=== PATIENT | male | born 1985 | race Two or more races ===

== ENCOUNTER 2023-05-14 09:16 | Observation (INO) ==
[2023-05-14] MEDS ORDERED: MoRPHine SULFATE 4 MG/ML 1 ML CARP\\VIAL IV STA (09:51)
[2023-05-14] MEDS ORDERED: SODIUM CHLORIDE 0.9% 1,000 ML IV STA (09:51)
[2023-05-14] MEDS ORDERED: ONDANSETRON INJ 2 MG/ML 2 ML VIAL IV STA (09:51)
--- NOTE | 2023-05-14 09:56 | Emergency Department Note ---
Impression & Plan Acute appendicitis ED Provider Note Provider: Santy Fernandez MD DATE OF SERVICE: 05/14/2023 CHIEF COMPLAINT: Severe abdominal pain HISTORY OF PRESENT ILLNESS: Patient is a 38-year-old gentleman denies significant past medical history history of surgeries presenting here [facility]. Reports onset of pain yesterday evening around 6 PM in the right lower abdomen. Denies any significant vomiting reports again nausea and one small episode of diarrhea. Denies any trauma. Denies history of similar. Pain diffusely in the abdomen more on the right side. Sent for [facility] further evaluation. Had a urine test sent there that was unremarkable. Has not used anything for pain at home. Denies allergies to his knowledge. Denies urinary or symptoms. 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 NECK: Trachea midline. ENT: Mucous membranes pink and moist. LUNGS: Airway patent. No retractions or significant work of breathing/tachypnea HEART: Regular rate and rhythm. No chest wall tenderness ABDOMEN: Soft but with diffuse tenderness predominantly in the right lower quadrant slightly in the right upper quadrant. Guarding. SKIN: Acyanotic, warm, dry, without rashes EXTREMITIES: Without swelling, tenderness or deformity NEUROLOGICAL: No focal deficits. No aphasia. No facial droop or slurred speech. Ambulatory. EK bpm normal sinus rhythm with an incomplete right bundle branch block. No acute ST segment elevation or depression with a QTc of 436. Patient's laboratory studies and imaging reviewed. Differential includes Appendicitis, testicular torsion, infections, diverticulitis, UTI, obstruction, mesenteric ischemia, aortic pathology, inflammatory bowel disease, renal colic, PUD, pancreatitis, biliary pathology, hernia, volvulus, constipation, as well as other pathologies. IMPRESSION/MEDICAL DECISION MAKING: Patient with significant abdominal pain predominantly right lower but little bit to the right side of the abdomen. Not significantly tender in the left but guarding. Appears uncomfortable. No significant medical or surgical history reported. Given some IV fluids, Zofran, morphine for pain. Lab work was completed. Question if he has possible appendicitis given the significance of his tenderness or other surgical pathology. Does not seem to be distended and lower suspicion for obstruction. We will complete a CT scan for further differentiation. Denies significant respiratory symptoms or chest discomfort and lower suspicion for pulmonary or cardiac etiology. Cyavb-ey-ouhh labs obtained and sent for CT scan given his tenderness and history. Have concern for appendicitis. Blood work here without significant anemia. Leukocytosis of 18 as noted. No evidence of significant electrolyte abnormality or renal dysfunction. No laboratory evidence of hepatitis or pancr eatitis. CT scan per my review and report concerning for acute appendicitis. Will cover with Zosyn. General surgery consulted. Discussed with the patient. N.p.o. since 7 PM last evening other than some sips of water this morning. DIAGNOSIS: Appendicitis DISPOSITION: Evaluation by general surgery with plan for OR Past Med/Surg History Social History Smoking Status: Never smoker Feels Safe at Home: Yes Allergies Allergies Allergy/AdvReac Type Severity Reaction Status Date / Time No Known Allergies Allergy Unverified 05/14/23 12:30 Home Meds Home Medications Medication Instructions Recorded Confirmed [id number] 0.4 mg-calcium 162 1 tab PO DAILY 05/14/23 05/14/23 mg-iron 18 [id number]-[id number]-[id number] tablet Results & Data (ED) Vital Signs Vital Signs - 24 hr 05/14/23 09:41 05/14/23 09:57 05/14/23 11:17 Temperature 36.6 C Temperature Source Temporal Artery Scan Pulse Rate 90 Pulse Rate [Apical] 80 Respiratory Rate 18 18 Respiratory Effort / Characteristics Non-Labored Respiratory Depth Normal Respiratory Pattern Regular Blood Pressure 120/64 Blood Pressure [Left Arm] 136/80 Blood Pressure Mean 82 Blood Pressure Mean [Left Arm] 98 Pulse Oximetry 97 97 97 Oxygen Delivery Method Room Air Room Air Room Air Sepsis Recent Fever Within 48 Hours No Sepsis New/Unexplained Change in Mental Status N/A Sepsis Action Taken by Nursing No Action Required Laboratory Data 05/14/23 09:58 05/14/23 09:58 Lab Results 05/14/23 05/14/23 05/14/23 Range/Units 09:58 09:58 09:58 WBC 18.84 H (4.8-10.8) K/ul RBC 5.10 (4.70-6.10) M/uL Hgb 15.3 (14.0-18.0) g/dl POC Hgb (14.0-18.0) g/dl Hct 43.0 (42.0-52.0) % POC Hct (42-52) % MCV 84.3 (80.0-100.0) fL MCH 30.0 (25.0-34.0) pg MCHC 35.6 (32.0-36.0) g/dL RDW Std Deviation 39.4 (36.4-46.3) fL RDW Coeff of Dionte 12.9 (11.5-14.5) % Plt Count 288 (130-400) K/uL MPV 10.0 (9.4-12.4) fL Immature Gran % (Auto) 0.6 % Neut % (Auto) 88.3 % Lymph % (Auto) 3.7 % [place] % (Auto) 7.2 % Eos % (Auto) 0.0 % Baso % (Auto) 0.2 % Neut # (Auto) 16.65 H (1.40-6.50) K/uL Lymph # (Auto) 0.69 L (1.20-3.40) K/uL [place] # (Auto) 1.35 H (0.11-0.59) K/uL Eos # (Auto) 0.00 (0.00-0.50) K/uL Baso # (Auto) 0.03 (0.00-0.20) K/uL Immature Gran # (Auto) 0.12 (0.01-0.20) K/uL POC Sodium (135-144) mmol/L Sodium 139 (136-145) mmol/L POC Potassium (3.3-5.0) mmol/L Potassium 3.5 (3.5-5.1) mmol/L POC Chloride (101-112) mmol/L Chloride 103 (98-107) mmol/L Carbon Dioxide 22 (21-32) mmol/L POC Total CO2 (24-31) mmol/L Anion Gap 14 H (3-11) POC Anion Gap (16-25) mmol/L POC BUN (7-18) mg/dl BUN 14 (6-23) mg/dl Creatinine 0.85 (0.6-1.4) mg/dl POC Creatinine (0.6-1.3) mg/dl Est Cr Clr Drug Dosing 95.4 ml/min Est GFR ( Amer) 126.3 ml/min Est GFR (Non-Af Amer) 109.0 ml/min BUN/Creatinine Ratio 16.5 (10-20) Glucose 167 H (70-99(Fasting)) mg/dl POC Glucose (other) (70-99) mg/dl Calcium 10.2 (8.6-10.3) mg/dl POC Ioniz Calcium Lili (1.12-1.32) mmol/l Total Bilirubin 1.3 H (0.2-1.0) mg/dl AST 20 (13-39) U/L ALT 18 (7-52) U/L Alkaline Phosphatase 86 (34-104) U/L Troponin I High Sens 2.7 (0-20) pg/ml Total Protein 8.4 H (6.0-8.3) gm/dl Albumin 5.1 H (3.4-5.0) gm/dl Globulin 3.3 (2.5-4.0) gm/dl Albumin/Globulin Ratio 1.5 (0.9-2) Lipase 9 L (11-82) U/L SARS-CoV-2, RNA, NAAT NEGATIVE (NEGATIVE) 05/14/23 Range/Units 10:04 WBC (4.8-10.8) K/ul RBC (4.70-6.10) M/uL Hgb (14.0-18.0) g/dl POC Hgb 15.6 (14.0-18.0) g/dl Hct (42.0-52.0) % POC Hct 46 (42-52) % MCV (80.0-100.0) fL MCH (25.0-34.0) pg MCHC (32.0-36.0) g/dL RDW Std Deviation (36.4-46.3) fL RDW Coeff of Dionte (11.5-14.5) % Plt Count (130-400) K/uL MPV (9.4-12.4) fL Immature Gran % (Auto) % Neut % (Auto) % Lymph % (Auto) % [place] % (Auto) % Eos % (Auto) % Baso % (Auto) % Neut # (Auto) (1.40-6.50) K/uL Lymph # (Auto) (1.20-3.40) K/uL [place] # (Auto) (0.11-0.59) K/uL Eos # (Auto) (0.00-0.50) K/uL Baso # (Auto) (0.00-0.20) K/uL Immature Gran # (Auto) (0.01-0.20) K/uL POC Sodium 141 (135-144) mmol/L Sodium (136-145) mmol/L POC Potassium 3.5 (3.3-5.0) mmol/L Potassium (3.5-5.1) mmol/L POC Chloride 104 (101-112) mmol/L Chloride (98-107) mmol/L Carbon Dioxide (21-32) mmol/L POC Total CO2 23 L (24-31) mmol/L Anion Gap (3-11) POC Anion Gap 18.0 (16-25) mmol/L POC BUN 13 (7-18) mg/dl BUN (6-23) mg/dl Creatinine (0.6-1.4) mg/dl POC Creatinine 0.7 (0.6-1.3) mg/dl Est Cr Clr Drug Dosing ml/min Est GFR ( Amer) ml/min Est GFR (Non-Af Amer) ml/min BUN/Creatinine Ratio (10-20) Glucose (70-99(Fasting)) mg/dl POC Glucose (other) 166 H (70-99) mg/dl Calcium (8.6-10.3) mg/dl POC Ioniz Calcium Lili 1.18 (1.12-1.32) mmol/l Total Bilirubin (0.2-1.0) mg/dl AST (13-39) U/L ALT (7-52) U/L Alkaline Phosphatase (34-104) U/L Troponin I High Sens (0-20) pg/ml Total Protein (6.0-8.3) gm/dl Albumin (3.4-5.0) gm/dl Globulin (2.5-4.0) gm/dl Albumin/Globulin Ratio (0.9-2) Lipase (11-82) U/L SARS-CoV-2, RNA, NAAT (NEGATIVE) Administered Medications Discontinued Medications Sodium Chloride (Nss) 1,000 mls @ 999 mls/hr IV .Q1H1M STA Stop: 05/14/23 10:51 Last Infusion: 05/14/23 11:02 Dose: 0 mls/hr Documented By: Admin: 10/15/23 09:55 Dose: 999 mls/hr Documented By: VITA Piperacillin Sod/Tazobactam Sod (Zosyn) 4.5 gm in 100 mls @ 200 mls/hr IV NOW ONE Stop: 05/14/23 11:13 Last Infusion: 05/14/23 11:53 Dose: 0 mls/hr Documented By: Admin: 05/14/23 11:15 Dose: 200 mls/hr Documented By: WOODY Ioversol (Optiray 320 100ml) 93 ml IV ONCE ONE Stop: 05/14/23 10:09 Last Admin: 05/14/23 10:08 Dose: 93 ml Documented By: ELIDA Morphine Sulfate (Morphine Sulfate 4 Mg/Ml 1 Ml Carp\Vial) 4 mg IV NOW STA Stop: 05/14/23 09:52 Last Admin: 05/14/23 09:55 Dose: 4 mg Documented By: NA Ondansetron HCl (Ondansetron Inj 2 Mg/Ml 2 Ml Vial) 4 mg IV NOW STA Stop: 05/14/23 09:52 Last Admin: 05/14/23 09:55 Dose: 4 mg Documented By: NA Imaging Data Radiologist's Impression: Abdomen/Pelvis CT 05/14/23 09:52 CT abd pelvis IV con only CLINICAL HISTORY: R abd pain, severe tender, nausea TECHNIQUE: Helical axial images of the abdomen and pelvis were obtained and displayed. Automated dose lowering techniques and/or adjustment according to patient size were utilized for this exam. This exam was performed with intravenous contrast. CT DOSE: 417.31 mGy.cm COMPARISON: None available at the time of this dictation. FINDINGS: Lower chest: No acute abnormality. Liver: Unremarkable. No focal lesions are seen. Gallbladder and biliary tree: No calcified gallstones. Normal caliber wall. No intra- or extrahepatic biliary ductal dilation. Pancreas: Unremarkable, no focal lesions. Spleen: Unremarkable. Adrenals: Unremarkable. Kidneys and ureters: Unremarkable. Bladder: Limited evaluation due to underdistention. Reproductive organs: Unremarkable. Bowel: There is prominence of the appendix measuring up to 12 mm in diameter with surrounding fat stranding. Lymph nodes Retroperitoneal: Unremarkable. Pelvic: Unremarkable. Mesenteric: Subcentimeter lymph nodes are noted in the right lower quadrant. Peritoneum: Fat stranding is seen about the appendix. No pneumoperitoneum and no abscess formation. Vessels: Unremarkable. Abdominal wall: A fat-containing umbilical hernia is seen. Bones: Unremarkable. IMPRESSION: Appendicitis is seen without evidence of perforation or abscess formation. Reactive mesenteric lymph nodes are noted. ACT 112: Negative or not required by law. Electronically signed by: Carson Barnett M.D. 05/14/2023 10:34 AM Discharge Plan Visit Data Chief Complaint: Abdominal Pain Stated Complaint: RT LOWER QUADRANT PAIN ED Provider: Santy Fernandez Discharge Problem: Acute appendicitis Patient Disposition: Being Evaluated by Surgeon Forms Stand Alone Forms: [facility] Prescriptions Prescriptions: No Action Centrum 0.4-162-18 mg Tablet 1 tab PO DAILY Referrals Referrals: PCP,NO [Physician] -
[2023-05-14] MEDS ORDERED: OPTIRAY 320 100ml IV ONE (10:08)
[2023-05-14 10:16] LABS: Basophils # (auto) 0.03 K/uL (0.00-0.20); Basophils % (auto) 0.2 %; Hemoglobin 15.3 g/dl (14.0-18.0); Immature Granulocytes # (auto) 0.12 K/uL (0.01-0.20); Immature Granulocytes % (auto) 0.6 %; Lymphocytes # (auto) 0.69 K/uL (1.20-3.40); Lymphocytes % (auto) 3.7 %; Mean Corpuscular Hgb Conc 35.6 g/dL (32.0-36.0); Mean Corpuscular Volume 84.3 fL (80.0-100.0); Monocytes # (auto) 1.35 K/uL (0.11-0.59); Monocytes % (auto) 7.2 %; Neutrophils # (auto) 16.65 K/uL (1.40-6.50); Neutrophils % (auto) 88.3 %; Platelet Count 288 K/uL (130-400); RDW Coefficient of Variation 12.9 % (11.5-14.5); RDW Standard Deviation 39.4 fL (36.4-46.3); White Blood Count 18.84 K/ul (4.8-10.8)
[2023-05-14 10:18] LABS: iSTAT Creatinine 0.7 mg/dl (0.6-1.3); iSTAT Hemoglobin 15.6 g/dl (14.0-18.0); iSTAT Ionized Calcium 1.18 mmol/l (1.12-1.32); iSTAT Potassium 3.5 mmol/L (3.3-5.0)
[2023-05-14 10:34] LABS: Albumin Globulin Ratio 1.5 (0.9-2); Albumin Level 5.1 gm/dl (3.4-5.0); BUN Creatinine Ratio 16.5 (10-20); Bilirubin,Total 1.3 mg/dl (0.2-1.0); Calcium 10.2 mg/dl (8.6-10.3); Creatinine Clr Calc Pharmacy 95.4 ml/min; Est GFR (African American) 126.3 ml/min; Globulin 3.3 gm/dl (2.5-4.0); Potassium 3.5 mmol/L (3.5-5.1); Total Protein 8.4 gm/dl (6.0-8.3)
--- NOTE | 2023-05-14 10:36 | CT Scan Report ---
CT abd pelvis IV con only CLINICAL HISTORY: R abd pain, severe tender, nausea TECHNIQUE: Helical axial images of the abdomen and pelvis were obtained and displayed. Automated dose lowering techniques and/or adjustment according to patient size were utilized for this exam. This e xam was performed with intravenous contrast. CT DOSE: 417.31 mGy.cm COMPARISON: None available at the time of this dictation. FINDINGS: Lower chest: No acute abnormality. Liver: Unremarkable. No focal lesions are seen. Gallbladder and biliary tree: No calcified gallstones. Normal caliber wall. No intra- or extrahepatic biliary ductal dilation. Pancreas: Unremarkable, no focal lesions. Spleen: Unremarkable. Adrenals: Unremarkable. Kidneys and ureters: Unremarkable. Bladder: Limited evaluation due to underdistention. Reproductive organs: Unremarkable. Bowel: There is prominence of the appendix measuring up to 12 mm in diameter with surrounding fat str anding. Lymph nodes Retroperitoneal: Unremarkable. Pelvic: Unremarkable. Mesenteric: Subcentimeter lymph nodes are noted in the right lower quadrant. Peritoneum: Fat stranding is seen about the appendix. No pneumoperitoneum and no abscess formation. Vessels: Unremarkable. Abdominal wall: A fat-containing umbilical hernia is seen. Bones: Unremarkable. IMPRESSION: Appendicitis is seen without evidence of perforation or abscess formation. Reactive mesenteric lymph nodes are noted. ACT 112: Negative or not required by law. Electronically signed by: Carson Barnett M.D. 05/14/2023 10:34 AM
[2023-05-14 10:40] LABS: Troponin I High Sensitivity 2.7 pg/ml (0-20)
[2023-05-14] MEDS ORDERED: PIPERACILLIN/TAZOBACTAM 4.5 GM/100 ML BAG IV ONE (10:44)
--- NOTE | 2023-05-14 10:56 | History & Physical Report ---
Date of Service May 14, 2023 Assessment & Plan (1) Acute appendicitis: Plan: IV abx IVF to OR for lap appendectomy History of Present Illness Primary Care Provider: NO PCP This is a 38-year-old male right sided abdominal pain which began yesterday. He denies vomiting but has nausea. He denies urinary or symptoms. CT scan shows acute appendicitis Past Med/Surg History Social History Smoking Status: Never smoker Feels Safe at Home: Yes Review of Systems Constitutional: no fever, no chills and no anorexia Eyes: no problem reported Ear, Nose, Mouth, Throat: no problem reported Respiratory: no cough and no dyspnea Cardiovascular: no chest pain Gastrointestinal: + abdominal pain and + nausea; no vomiting Genitourinary: no dysuria Musculoskeletal: no back pain, no neck pain and no joint pain Integumentary: no rash and no lesions Neurologic: no localized weakness and no generalized weakness Psychiatric: no behavioral changes Endocrine: no fatigue Hematologic / Lymphatic: no easy bleeding and no easy bruising Physical Exam Constitutional: WD/WN, vitals as above Eyes: PERRL, conjunctivae normal, anicteric sclerae Neck: trachea midline Respiratory: normal respiratory effort, lungs clear to auscultation Cardiovascular: RRR, no murmur, no edema Gastrointestinal (Abdomen): Inspection/Auscultation: abdomen normal to inspection and normal bowel sounds; abdomen not distended Percussion/Palpation: + abdomen tender and abdomen soft; no guarding and abdomen not rigid Musculoskeletal: Head/Neck/Chest: normocephalic and head atraumatic Skin: no rashes, warm and dry Results & Data Results & Data Vital Signs (Past 12 Hours) Vital Signs Temp Pulse Resp BP Pulse Ox O2 Del Method 05/14/23 09:57 97 Room Air 05/14/23 09:41 36.6 C 90 18 120/64 97 Room Air Diagnostic Findings CT abd pelvis IV con only CLINICAL HISTORY: R abd pain, severe tender, nausea TECHNIQUE: Helical axial images of the abdomen and pelvis were obtained and displayed. Automated dose lowering techniques and/or adjustment according to patient size were utilized for this exam. This exam was performed with intravenous contrast. CT DOSE: 417.31 mGy.cm COMPARISON: None available at the time of this dictation. FINDINGS: Lower chest: No acute abnormality. Liver: Unremarkable. No focal lesions are seen. Gallbladder and biliary tree: No calcified gallstones. Normal caliber wall. No intra- or extrahepatic biliary ductal dilation. Pancreas: Unremarkable, no focal lesions. Spleen: Unremarkable. Adrenals: Unremarkable. Kidneys and ureters: Unremarkable. Bladder: Limited evaluation due to underdistention. Reproductive organs: Unremarkable. Bowel: There is prominence of the appendix measuring up to 12 mm in diameter with surrounding fat stranding. Lymph nodes Retroperitoneal: Unremarkable. Pelvic: Unremarkable. Mesenteric: Subcentimeter lymph nodes are noted in the right lower quadrant. Peritoneum: Fat stranding is seen about the appendix. No pneumoperitoneum and no abscess formation. Vessels: Unremarkable. Abdominal wall: A fat-containing umbilical hernia is seen. Bones: Unremarkable. IMPRESSION: Appendicitis is seen without evidence of perforation or abscess formation. Reactive mesenteric lymph nodes are noted.
[2023-05-14] MEDS ORDERED: BUPIVACAINE/EPINEPHRINE 0.5% MPF 1:200,000 30 ML VIAL ONE (11:17)
[2023-05-14] MEDS ORDERED: MoRPHine SULFATE 2 MG/ML CARP IV PRN (13:20)
[2023-05-14] MEDS ORDERED: oxyCODONE/ACETAMINOPHEN 5mg/325mg TAB PO PRN (13:20)
[2023-05-14] MEDS ORDERED: ONDANSETRON INJ 2 MG/ML 2 ML VIAL IV ONE (13:20)
[2023-05-14] MEDS ORDERED: MoRPHine SULFATE 4 MG/ML 1 ML CARP\\VIAL IV PRN (13:20)
[2023-05-14] MEDS ORDERED: cefOXitin 2,000 MG/60 ML BAG IV SCH (13:45)
[2023-05-14] MEDS ORDERED: HYDROmorphone INJ 2 MG/ML SYR/VIAL IV PRN (14:25)
[2023-05-14] MEDS ORDERED: fentaNYL citrate PF 100 MCG/2 ML VIAL IV PRN (14:25)
[2023-05-14] MEDS ORDERED: PROMETHAZINE HCL 12.5 MG in SODIUM CHLORIDE 0.9% 50 ML IV PRN (14:25)
[2023-05-14] MEDS ORDERED: ATROPINE SULFATE 0.1 MG/ML 10ML SYR IV PRN (14:25)
[2023-05-14] MEDS ORDERED: ONDANSETRON INJ 2 MG/ML 2 ML VIAL IV PRN (14:25)
[2023-05-14] MEDS ORDERED: ePHEDrine sulfate 50 MG/ML AMP IV PRN (14:25)
--- NOTE | 2023-05-14 14:25 | Anesthesiology Consultation ---
Date of Service May 14, 2023 Assessment & Plan Chart Review Chart Review: Acceptable Risk for Surgery Consults Requested none ASA [id number] Proposed Anesthesia Anesthesia Type: General History Surgery Operation Date: 05/14/23 12:30 Proposed Procedures p Laparoscopic Appendectomy - Khalif Garcia MD Height/Weight Height: 5 ft 6.93 in Weight: 58.4 kg Allergies Allergy/AdvReac Type Severity Reaction Status Date / Time No Known Allergies Allergy Unverified 05/14/23 12:30 Medications Home Medications Medication Instructions Recorded Confirmed Last Taken [id number]-dyw-MT 0.4 mg-calcium 162 1 tab PO DAILY 05/14/23 05/14/23 Unknown mg-iron 18 rm-xaxfbrc-kqcpkz tablet NPO Date Last Intake of Fluids: 05/14/23 Time Last Intake of Fluids: 05:00 Date Last Intake of Solids: 05/13/23 Time Last Intake of Solids: 19:00 Social History Smoking Status: Never smoker Physical Exam Vital Signs Last Vital Signs Temp 36.6 C 05/14/23 09:41 Pulse 88 05/14/23 13:00 Resp 18 05/14/23 13:00 BP 136/80 05/14/23 11:17 Pulse Ox 97 05/14/23 13:00 O2 Del Method Room Air 05/14/23 13:00 Testing Laboratory Results 05/14/23 09:58 05/14/23 09:58 05/14/23 10:04 POC Glucose (other) 166 H
--- NOTE | 2023-05-14 15:10 | Operative Report ---
Post Operative Report Pre & Post Diagnosis Pre: Acute appendicitis Post: Acute appendicitis I identified the patient and participated in the time-out.: Yes Procedure Operation Date: 05/14/23 12:30 Laparoscopic appendectomy Surgeon Khalif Garcia MD Ocular Care Technician none Estimated Blood Loss 15 Findings Consistent with Post-Op Diagnosis Acute appendicitis Specimens Appendix to pathology Drains None Anesthesia Type General Complications None Indications This is a 38-year-old male who came in with acute abdominal pain. He was seen in the ED and sent for CT scan. CT scan showed acute appendicitis. There is no sign of perforation or abscess. Talked in detail about this and recommended a laparoscopic appendectomy. Went over the risk of an open procedure, bleeding, abscess requiring reoperation or IR drainage, and postop ileus. He understands this and wishes to proceed Description of Procedure The patient was taken to the OR and underwent excellent general anesthesia. His abdomen was prepped and draped in normal sterile fashion. Sterile transverse supraumbilical incision was made, towel clamps were used to create tension on the abdominal wall. A varies needle was inserted into his peritoneal cavity. Good pneumoperitoneum was achieved to about 15 mmHg pressure. Once this was done visualized 11 port was placed in the supraumbilical position. A 11mm left lower quadrant port , a 5mm suprapubic port , and a 5mm right upper quadrant port were placed in normal fashion. Patient was then placed in head down and rolled to the left. Good diagnostic lap was performed. He had obvious acute appendicitis. The cecum was grasped with an atraumatic grasper. A grasper was then placed was then used to grasp the tip of the appendix. The mesoappendix was splayed open and a harmonic scalpel was used to take down the mesoappendix. This was taken down to the base of the appendix. Once this was identified an Endo YONAS stapler was used to transect the appendix at its base. A Endobag was then inserted through the left lower quadrant port, the appendix was placed and then brought out through the left lower quadrant port. Appendix sent for pathologic valuation. Pneumoperitoneum and the port reestablished. A liter of saline was then used to irrigate the right lower quadrant. There was no active bleeding no other abnormalities were noted in the abdomen. Patient was then placed back and head down the ports were removed the needle and the and was then decompressed. The 12 port fascia was then closed using a 0 Vicryl. The skin was then anesthetized with 0.5% Marcaine with epinephrine local. Interrupted Vicryl is used to close the skin. Steri-Strips and benzoin were used to reinforce the incisions. Sterile dressings were applied. Patient tolerated procedure without complication was sent to the postop recovery period of observation. He will be sent to the floor for the rest of his care. I attest to the content of the Intraoperative Record and any orders documented therein. Any exceptions are noted below.
[2023-05-14] MEDS ORDERED: PROPOFOL IV EMULSION 10 MG/ML 20 ML VIAL IV ONE (15:48)
[2023-05-14] MEDS ORDERED: fentaNYL citrate PF 100 MCG/2 ML VIAL ONE (15:51)
[2023-05-14] MEDS ORDERED: MIDAZOLAM HCL 1 MG/ML 2ML VIAL ONE (15:53)
[2023-05-14] MEDS ORDERED: DEXAMETHASONE SOD INJ 4 MG/ML VIAL ONE (16:36)
[2023-05-14] MEDS ORDERED: ONDANSETRON INJ 2 MG/ML 2 ML VIAL ONE (16:36)
[2023-05-14] MEDS ORDERED: ROCURONIUM BROMIDE 10 MG/ML 5 ML VIAL IV ONE (16:37)
[2023-05-14] MEDS ORDERED: NEOSTIGMINE METHYLSULFATE 1 MG/ML 10ML VIAL ONE (16:37)
[2023-05-14] MEDS ORDERED: GLYCOPYRROLATE 0.2 MG/ML VIAL ONE (16:37)
[2023-05-14] MEDS: LACTATED RINGER'S 1,000 ML IV SCH (18:02)
--- NOTE | 2023-05-14 18:13 | Anesthesiology Progress Note ---
Date of Service May 14, 2023 Anesthesia Post Procedure Vital Signs Vital Signs: Temp Pulse Pulse Pulse Resp BP BP 05/14/23 17:50 37.2 C 85 16 97/65 L 05/14/23 17:40 88 16 102/66 05/14/23 17:30 92 H 19 114/61 05/14/23 17:10 93 H 19 105/60 05/14/23 17:00 85 23 107/58 L 05/14/23 17:20 37.1 C 84 16 106/65 05/14/23 16:52 37.1 C 83 20 109/55 L 05/14/23 13:00 88 18 05/14/23 11:17 80 18 136/80 05/14/23 09:57 05/14/23 09:41 36.6 C 90 18 120/64 Pulse Ox O2 Del Method O2 Flow Rate 05/14/23 17:50 96 Room Air 05/14/23 17:40 96 Room Air 05/14/23 17:30 95 Room Air 05/14/23 17:10 95 Room Air 05/14/23 17:00 98 Nasal Cannula 4 05/14/23 17:20 96 Room Air 05/14/23 16:52 98 Nasal Cannula 4 05/14/23 13:00 97 Room Air 05/14/23 11:17 97 Room Air 05/14/23 09:57 97 Room Air 05/14/23 09:41 97 Room Air Pain Intensity Abdomen: Pain Intensity: 2 Transfer of Care Handoff Completed per policy Notes Mental Status: alert / awake / arousable and participated in evaluation Patient Amnestic to Procedure: Yes Nausea / Vomiting: adequately controlled Pain: adequately controlled Airway Patency, RR, SpO2: stable & adequate BP & HR: stable & adequate Hydration State: stable & adequate Anesthetic Complications: no major complications apparent
[2023-05-14] MEDS ORDERED: INFLUENZA VIRUS QUADRIVALENT VACCINE (IIV4) 0.5 ML SYR IM ONE (18:24)
[2023-05-14 19:49] LABS: Appearance Urine Clear (Clear); Bilirubin Urine Negative (Negative); Blood Urine Negative (Negative); Color Urine Yellow; Glucose Urine UA Negative (Negative); Ketones Urine Trace (Negative); Leukocyte Esterase Urine Negative (Negative); Nitrite Urine Negative (Negative); Protein Urine Negative (Negative); Specific Gravity Urine 1.016 (1.000-1.030); Urobilinogen Urine Negative (Negative); pH Urine 6.5 (4.5-7.5)
[2023-05-14] MEDS: oxyCODONE/ACETAMINOPHEN 5mg/325mg TAB PO PRN (21:31)
[2023-05-15] MEDS: LACTATED RINGER'S 1,000 ML IV SCH ×2 (03:41→10:05)
[2023-05-15] MEDS: oxyCODONE/ACETAMINOPHEN 5mg/325mg TAB PO PRN ×2 (06:27→10:54)
--- NOTE | 2023-05-15 10:03 | Discharge Summary ---
Date of Service May 15, 2023 Admission HPI Per Admitting Provider This is a 38-year-old male right sided abdominal pain which began yesterday. He denies vomiting but has nausea. He denies urinary or symptoms. CT scan shows acute appendicitis Principal Diagnosis Acute appendicitis Discharge Exam Constitutional WD/WN, vitals as above cooperative and comfortable; no acute distress, not ill appearing and not in distress Gastrointestinal (Abdomen) Inspection/Auscultation: abdomen normal to inspection and + abdominal surgical incision (covered with dressings c/d/i); abdomen not distended Percussion/Palpation: + abdomen tender (at incision sites and RLQ appropriate postop) and abdomen soft; no guarding, abdomen not rigid and abdomen not firm Skin no rashes, warm and dry Psychiatric A+Ox3, euthymic affect Discharge Data Allergies Allergy/AdvReac Type Severity Reaction Status Date / Time No Known Allergies Allergy Unverified 05/14/23 12:30 Consultations 05/14/23 10:44 Consult General Surgery Routine Procedures Performed Operation Date: 05/14/23 12:30 Actual Procedures p Laparoscopic Appendectomy(Not Applicable) - Khalif Garcia MD Ordered Studies 05/14/23 09:52 CT abd pelvis IV con only Stat Hospital Course (1) Acute appendicitis: Patient taken to operating room for laparoscopic appendectomy by Dr. Garcia on 05/14/2023. Patient found to have acute appendicitis without perforation or rupture. Patient tolerated procedure without difficulty and was transferred to recovery and then to med/surg floor for postop care. Diet advanced as tolerated, activity as tolerated, PO Percocet prn pain, and antiemetics as needed. POD# 1 patient evaluated, avss, postop pain controlled and minimal, ambulating hallway without difficulty, urinating without difficulty, tolerating diet. Patient was discharged home on POD # 1 in stable condition. Total Time Total Time Spent Total Time Spent (In Minutes): 20 Total Time Includes: Examination of the Patient, Discharge Planning and Medication Reconciliation Discharge Plan Discharge Items Patient Disposition: Home - Self-Care Reason For Visit: APPENDICITIS Discharge Diagnosis: acute appendicitis Activity: Per Instructions section Non-emergency contact: Primary Care Provider and Surgeon Call non-emergency contact if: you have any medication questions, your pain is worsening, your pain is concerning for you, you have a fever, your temperature is above 101, your wound has increased redness, your wound has increased drainage and your wound pain has increased Follow-up/Referrals: Khalif Garcia MD [Physician] - PCP,NO [Physician] - Diet: Regular Addtl Attending Provider Instructions: Post-Surgical ~Discharge Instructions Activity Recommendations: - lifting limitation: (20 pounds for 3-4 weeks), - exercise/sex/sports limit: (nonstrenuous for 2 weeks), - driving or machine use limit: (none for 1 week or until pain free and no longer taking narcotic pain medication), - Shower/bathe limit: (may shower tonight) Diet: - Resume previous diet SPECIAL CARE INSTRUCTIONS: - May shower tonight. Remove outer dressings and let water run over area and pat dry. - Leave steri strips on for one week and then remove they may fall off on their own that is okay. - Call the surgeon's office with any questions or concerns - - (ex. temperature higher than 101 degrees F, excessive bleeding or pain). MEDICATIONS: - Resume previous medications unless instructed otherwise by your surgeon. - May alternate extra strength Tylenol and Ibuprofen as needed for mild to moderate pain -650 mg Tylenol every 6 hours as needed - Ibuprofen 600 mg every 6 hours as needed (take with food) - Percocet 1 every 6 hours, as needed for moderate to severe pain - Recommend daily stool softener (Colace) while taking narcotic pain medication to prevent constipation or straining. Drink plenty of water daily. FOLLOW UP VISIT: - If not already scheduled, please call the office to schedule a two week follow-up appointment. Office number Pending Studies at Discharge: Yes (appendix pathology, will be reviewed at postop visit) Stand-Alone Forms: [facility], Pain - Opioid Pain Management, Work/School Release, Smoking Cessation Medications and DC Order Prescriptions: New oxycodone-acetaminophen 5-325 mg tablet 1 tab PO Q6H PRN (Reason: pain) Qty: 10 0RF Continued [id number]-nqq-HD-Gz-Wj-eepxgqj-lutein 0.4-162-18 mg Tablet 1 tab PO DAILY Discharge Orders: Discharge Order (Routine); Ordered 05/15/23 Ordered By: Alexa Ramirez/Other Patient Handouts: Appendectomy, What Is Appendicitis? Admission Data Admit Date/Time: 05/14/23 13:22 Attending Provider: Khalif Garcia Admit Provider: Khalif Garcia Primary Care Provider: [facility] Other Providers: Khalif Garcia Other Interventions: Discharge Summary Assessment (RN) Last Done: 05/15/23 10:21
--- NOTE | 2023-05-16 06:48 | Electrocardiogram Report ---
Test Reason : Blood Pressure : / mmHG Vent. Rate : 076 BPM Atrial Rate : 076 BPM P-R Int : 154 ms QRS Dur : 092 ms QT Int : 388 ms P-R-T Axes : 071 065 063 degrees QTc Int : 436 ms Normal sinus rhythm Incomplete right bundle branch block Borderline ECG No previous ECGs available Confirmed by Shon Nog ([id number]) on 05/16/2023 6:48:03 AM Referred By: REFERRED SELF Confirmed By:Shon Ngo
== END 2023-05-15 11:45 | disposition home or self-care (01) ==
LOC: ED 09:16 → SURCTR 13:43 → 3E 13:43